=== PATIENT | female | born 1980 | race Caucasian/White ===

== ENCOUNTER 2017-05-16 23:16 | Emergency (ER) | payer MEDICAID ==
[~2017-05-16] VITALS: Ht 160 cm; Wt 87.9 kg
[2017-05-16 23:19] VITALS: BP 138/68; PULSE 81; RESP 18; TEMP 98.7; O2SAT 97
[2017-05-16 23:30] VITALS: BP 138/68; PULSE 81; RESP 18; O2SAT 97
[2017-05-16] MEDS ORDERED: CLIN300C5 PO (23:34)
--- NOTE | 2017-05-16 23:38 | PD ---
HPI . Toothache Chief Complaint: Oral / Dental Pain or Problem Time Seen by Provider: 23:33 Travel History International Travel<30 days: No Contact w/Intl Traveler<30days: No History of Present Illness HPI Patient presents with chief complaint of toothache. Onset was about 48 hours ago. She states that she had treated it at home with Orajel and ibuprofen with seemingly good relief of her symptoms. However, her symptoms recurred later and were associated with some swelling on the left side of her face. She decided at that point that she should come in and get checked. PFSH Social History Tobacco Use: No Allergies-Medications (Allergen,Severity, Reaction): Coded Allergies: No Known Allergies (Unverified , 05/16/17) Reported Meds & Prescriptions Reported Meds & Active Scripts Active Clindamycin (Clindamycin HCl) 300 Mg Cap 600 Mg PO Q8H 7 Days Review of Systems Except as stated in HPI: all other systems reviewed are Neg General / Constitutional: No: Fever, Chills HENT: Positive: Dental Difficulties Physical Exam Narrative GENERAL: Awake and alert and in no acute distress. SKIN: Warm and dry. No redness or warmth of the skin of her cheek. There is some swelling both visible and palpable. HEAD: Normocephalic/atraumatic. EYES: Pupils are equal. Extraocular movements are intact. ENT: Tender left upper central incisor. NECK: Normal range of motion. No cervical lymphadenopathy. RESPIRATORY: Nonlabored respirations. MUSCULOSKELETAL: Atraumatic. NEUROLOGICAL: Nonfocal. PSYCHIATRIC: Appropriate mood and affect. Data Data Last Documented VS Vital Signs Date Time Temp Pulse Resp B/P (MAP) Pulse Ox O2 Delivery O2 Flow Rate FiO2 05/16/17 23:19 98.7 81 18 138/68 (91) 97 Orders Orders Ed Discharge Order (05/16/17 23:34) Clindamycin (Cleocin) (05/16/17 23:45) MDM Medical Decision Making Medical Screen Exam Complete: Yes Emergency Medical Condition: Yes Differential Diagnosis Differential diagnosis of a toothache includes but is not limited to dental caries, dental abscess, gingivitis, drug-seeking behavior. Narrative Course Patient presents with a toothache. She does have some associated facial swelling. She will be treated for dental abscess with clindamycin. She will be instructed to follow-up with a dentist. Diagnosis Primary Impression: Dental abscess Patient Instructions: General Instructions, Dental Abscess (ED) Departure Forms: Tests/Procedures Additional Instructions: Follow-up with a dentist of choice Scripts Clindamycin (Clindamycin) 300 Mg Cap 600 MG PO Q8H for Infection for 7 Days, #42 CAP 0 Refills Prov: Henrietta Castillo MD 05/16/17 Disposition: 01 DISCHARGE HOME Condition: Stable Henrietta Castillo MD May 16, 2017 23:38
[2017-05-16] MEDS ORDERED: CLINDAMYCIN 150 MG CAP PO ONE (23:45)
[2017-05-16 23:54] VITALS: BP 144/75
== END 2017-05-16 23:56 | disposition home or self-care (01) ==
LOC: PHED 23:16
DX: K04.7 Periapical abscess without sinus (principal)
CPT/HCPCS: 99283